=== PATIENT | female | born 1980 | race Caucasian/White ===

== ENCOUNTER 2016-04-20 19:29 | Emergency (ER) | payer SELFPAY ==
[~2016-04-20] VITALS: Ht 162.6 cm; Wt 84.8 kg
[~2016-04-20 19:29] MED LIST: AMOX1TAB61 PO; IBUP800T2 PO; ONDA4TAB7 PO
[2016-04-20 20:43] VITALS: BP 113/70
[2016-04-20] MEDS ORDERED: DIPHTH,PERTUSS(ACELL),TET TOX 0.5 ML DISP.SYRIN. VAX IM ONE (21:15)
[2016-04-20] MEDS ORDERED: LIDOCAINE 1% / SOD BICARB 8.4% 20 ML VIAL. IJ ONE (21:15)
--- NOTE | 2016-04-20 22:51 | PHYS DOC ---
Past Medical History Past Medical History: Anxiety Additional Past Medical Histor: ADHD Past Surgical History: Hysterectomy Alcohol Use: None Drug Use: None Adult General Chief Complaint Chief Complaint: LACERATION/AVULSION HPI HPI Patient is a 35 year old female who presents with left thumb laceration at 1430. Patient states she is using a knife to remove a zip tie from a package when the knife slipped and cut her thumb. She cleaned the wound with iodine and irrigated it in the sink. She covered the wound and went to school to complete a final examination. The wound reopened and she applied tissue glue to the wound to control bleeding. Her tetanus immunization is not up-to-date. Her PCP is Dr. Asya Maynard. Review of Systems Review of Systems Constitutional: Denies fever or chills. [] Musculoskeletal: Denies back pain or joint pain. Reports left thumb pain. Integument: Denies rash or skin lesions. Reports left thumb laceration. Neurologic: Denies focal weakness or sensory changes. [] Current Medications Current Medications Current Medications Medications (Trade) Dose Ordered Sig/Susana Start Time Stop Time Status Last Admin Dose Admin Diphtheria/ Tetanus/Acell Pertussis (Boostrix) 0.5 ml ONCE ONCE 04/20/16 21:15 04/20/16 21:16 DC 04/20/16 21:21 0.5 ML Lidocaine/Sodium Bicarbonate (Buffered Lidocaine 1%) 20 ml 1X ONCE 04/20/16 21:15 04/20/16 21:16 DC 04/20/16 21:20 20 ML Allergies Allergies Allergies Coded Allergies Type Severity Reaction Last Updated Verified amoxicillin Adverse Reaction Unknown Nausea and Vomiting 04/20/16 Yes clavulanic acid Adverse Reaction Unknown Nausea and Vomiting 04/20/16 Yes Physical Exam Physical Exam Constitutional: Well developed, well nourished, no acute distress, non-toxic appearance. [] HENT: Normocephalic, atraumatic, oropharynx moist. [] Eyes: PERRLA, EOMI, conjunctiva normal, no discharge. [] Skin: Warm, dry, no erythema, no rash. There is a 1 cm laceration on the palmar surface of the left thumb proximal phalanx. Extremities: Left thumb tenderness, decreased opposition of the thumb due to pain, no edema. 2+ radial and ulnar pulses. Less than 2 second capillary refill in the fingers distally. Light touch sensation intact in the finger distally. Neurologic: Alert and oriented X 3, normal motor function, normal sensory function, no focal deficits noted. [] Psychologic: Affect normal, judgement normal, mood normal. [] Current Patient Data Vital Signs Vital Signs Date Time Temp Pulse Resp B/P Pulse Ox O2 Delivery O2 Flow Rate FiO2 04/20/16 20:43 98.3 87 16 99 Room Air 98.3 EKG EKG [] Radiology/Procedures Radiology/Procedures Three-view x-ray of the left hand reviewed and interpreted by myself with Dr. Coulter. There are no acute fractures or dislocations. Course & Med Decision Making Course & Med Decision Making Pertinent Labs and Imaging studies reviewed. (See chart for details) Patient presents with a 1 cm laceration to the left thumb palmar surface, proximal phalanx. The wound was anesthetized with 1% buffered lidocaine. The wound was explored for foreign bodies and none were identified. There was no tendon laceration. The wound was cleaned using chlorhexidine scrub and copiously irrigated using normal saline. Previously applied tissue adhesive glue was removed. Wound edges were well approximated using 2 simple interrupted sutures using 5-0 nylon. The patient tolerated the procedure well and bleeding was controlled. A sterile dressing was applied. Dragon Disclaimer Dragon Disclaimer This electronic medical record was generated, in whole or in part, using a voice recognition dictation system. Departure Departure Impression: Primary Impression: Finger laceration Disposition: 01 HOME, SELF-CARE Condition: IMPROVED Referrals: NO PCP (PCP) Patient Instructions: Sutured Wound Care, [id number] Additional Instructions: Your wound was closed with nonabsorbable sutures. The sutures may get wet, however do not submerge the wound in water. Please clean the wound with soap and water only. Do not use alcohol or peroxide , as this will prolong the healing stage. Please cover the wound with antibiotic ointment and a bandage. Please follow-up with your doctor for suture removal in 7-10 days. Follow-up with your doctor or return to the emergency department if you have redness, swelling, or yellow/green drainage from the wound, as these are signs of infection. Return to the emergency department if you have any new or concerning symptoms. Problem Qualifiers Primary Impression: Finger laceration Encounter type: initial encounter Qualified Code: S61.219A - Laceration without foreign body of unspecified finger without damage to nail, initial encounter JAQUAN GUZMAN Apr 20, 2016 22:51
--- NOTE | 2016-04-21 08:15 | RAD ---
Exam performed:Left hand 3 views. Indication: Laceration to the base of thumb. Date of Service:04/20/16 Comparison: None available Discussion: PA, oblique lateral radiographs of the hand reveal the osseous structures to be intact and well aligned. The joint spaces are well-preserved. The articular margins are smooth. No soft tissue swelling or foreign bodies detected. Impression: Radiographically normal left hand.
== END 2016-04-20 22:58 | disposition home or self-care (01) ==
LOC: ER 19:29
DX: S61.012A Laceration without foreign body of left thumb without damage to nail, initial encounter (principal); F90.9 Attention-deficit hyperactivity disorder, unspecified type; Z88.1 Allergy status to other antibiotic agents; W26.0XXA Contact with knife, initial encounter; Y93.89 Activity, other specified; Y99.8 Other external cause status; Y92.89 Other specified places as the place of occurrence of the external cause
CPT/HCPCS: 12001; 73130; 90471; 90715; 99284-25

== ENCOUNTER → 2016-12-22 | Outpatient (CLI) | payer OTHER ==
[~2016-12-22] MED LIST changes: +IBUP800T19 PO; -IBUP800T2 PO
--- NOTE | 2016-12-22 11:53 | RAD ---
AP and lateral views of the lumbar spine 12/22/2016 Indication: Low back pain. Developing arthritis. Comparison study: None available Discussion: No evidence of acute fracture or alignment abnormality is identified. Vertebral body heights and disc spaces are maintained. No evidence of spondylolysis or spondylolisthesis is seen. Possible mild facet arthrosis can be seen at L5-S1. No acute soft tissue changes are identified. Impression: Possible mild degenerative change at L5-S1. No acute abnormalities are identified
== END | disposition home or self-care (01) ==
LOC: RAD 11:11
PROVIDERS: ATTEND Neuromusculoskeletal Medicine, Sports Medicine
DX: M51.37 Other intervertebral disc degeneration, lumbosacral region (principal)
CPT/HCPCS: 72100

== ENCOUNTER 2018-05-07 09:16 | Emergency (ER) | payer SELFPAY ==
[~2018-05-07] VITALS: Ht 165.1 cm; Wt 81.6 kg
[2018-05-07] MEDS ORDERED: IV NORMAL SALINE 1000ML BAG 1,000 ML IV ONE (10:00)
[2018-05-07] MEDS ORDERED: KETOROLAC 15 MG/ML VIAL. IV ONE (10:00)
[2018-05-07 10:21] LABS: BASO % 0 % (0-3); BILIRUBIN,URINE NEGATIVE (NEG); CLARITY,URINE CLEAR; COLOR,URINE YELLOW; EOS # 0.2 x10^3/uL (0.0-0.7); EOS % 2 % (0-3); HEMATOCRIT 39.8 % (36.0-47.0); HEMOGLOBIN 13.7 g/dL (12.0-15.5); LYMPH # 2.2 x10^3/uL (1.0-4.8); LYMPH % 30 % (24-48); MEAN CORPUSCULAR HEMOGLOBIN 33 pg (25-35); MEAN CORPUSCULAR HGB CONC 34 g/dL (31-37); MEAN CORPUSCULAR VOLUME 95 fL (79-100); MONO # 0.6 x10^3/uL (0.0-1.1); MONO % 8 % (0-9); NEUT # 4.3 x10^3uL (1.8-7.7); NEUT % 59 % (31-73); NITRITE,URINE NEGATIVE (NEG); PH,URINE 6.5; PLATELET COUNT 328 x10^3/uL (140-400); PROTEIN,URINE NEGATIVE (NEG-TRACE); RED CELL DISTRIBUTION WIDTH 12.9 % (11.5-14.5); UROBILINOGEN,URINE 0.2 mg/dL (0.2 mg/dL); WHITE BLOOD COUNT 7.2 x10^3/uL (4.0-11.0)
--- NOTE | 2018-05-07 10:23 | PHYS DOC ---
Past Medical History Past Medical History: Anxiety, Kidney Stone, Other Additional Past Medical Histor: ADHD,SPINAL STENOSIS,CHRONIC PAIN Past Surgical History: Hysterectomy, Other Additional Past Surgical Histo: CYSTOSCOPY W/STENTS,LITHOTRIPSY,SONIC BLAST Alcohol Use: None Drug Use: None Adult General Chief Complaint Chief Complaint: ABDOMINAL PAIN HPI HPI Patient is a 37 year old female, with a history of kidney stones and , who presents with right flank pain and b/l lower abdominal pain. Pt reports having this pain for the past few days, describing it as a pressure sensation that can become sharp w/ movement and rated a 8/10. She reports feeling nauseous the past few days, and vomited yesterday. Her pain is better when she lies flat and doesn't move. She admits to frequency, urgency, headache, feeling feverish, and chills. She denies dysuria, hematuria, diarrhea, constipation, chest pain, SOB, or cough. She also relays a distant history (~ 2007) of kidney stones requiring hospitalization and leading to a cystoscopy w/ stents, lithotripsy, sonic blast. In 2002 she had a hysterectomy and reports that they may have cut her left ureter partially and this was the cause of her kidney problems in 2007. Review of Systems Review of Systems Constitutional: Admits fever or chills Eyes: Denies change in visual acuity, redness, or eye pain HENT: Denies nasal congestion or sore throat Respiratory: Denies cough or shortness of breath Cardiovascular: No additional information not addressed in HPI GI: Admits lower abdominal pain b/l, nausea, vomiting. Denies bloody stools or diarrhea : Denies dysuria or hematuria. Admits to frequency and urgency Musculoskeletal: Admits right back pain. Integument: Denies rash or skin lesions Neurologic: Admits CARMONA, Denies focal weakness or sensory changes All other systems were reviewed and found to be within normal limits, except as documented in this note. Current Medications Current Medications Current Medications Medications (Trade) Dose Ordered Sig/Susana Start Time Stop Time Status Last Admin Dose Admin Ketorolac Tromethamine (Toradol 15mg Vial) 15 mg 1X ONCE 05/07/18 10:00 05/07/18 10:14 DC 05/07/18 10:19 15 MG Sodium Chloride 1,000 ml @ 1,000 mls/hr 1X ONCE 05/07/18 10:00 05/07/18 10:59 DC 05/07/18 10:18 1,000 MLS/HR Allergies Allergies Allergies Coded Allergies Type Severity Reaction Last Updated Verified amoxicillin Adverse Reaction Unknown Nausea and Vomiting 04/20/16 Yes clavulanic acid Adverse Reaction Unknown Nausea and Vomiting 04/20/16 Yes Physical Exam Physical Exam Constitutional: Well developed, well nourished, mild distress, non-toxic appearance. HENT: Normocephalic, atraumatic, bilateral external ears normal, oropharynx moist, no oral exudates, nose normal. Eyes: PERRLA, EOMI, conjunctiva normal, no discharge. Neck: Normal range of motion, no tenderness, supple, no stridor Cardiovascular:Heart rate regular rhythm, no murmur Lungs & Thorax: Bilateral breath sounds clear to auscultation Abdomen: Bowel sounds normal, soft, no masses, no pulsatile masses. slight tenderness to deep palpation in left and right lower quadrants. Skin: Warm, diaphoretic dry, no erythema, no rash. Back:CVA tenderness to light tapping on the right- did not need to preform Adalberto 's punch after this positive Extremities: No tenderness, no cyanosis, no clubbing. Mild Swelling of the fingers and hands Neurologic: Alert and oriented X 3, normal motor function, normal sensory function, no focal deficits noted. Current Patient Data Vital Signs Vital Signs Date Time Temp Pulse Resp B/P (MAP) Pulse Ox O2 Delivery O2 Flow Rate FiO2 05/07/18 09:18 97.6 80 20 136/60 (85) 100 Room Air 97.6 Lab Values Laboratory Tests Test 05/07/18 09:22 White Blood Count 7.2 x10^3/uL (4.0-11.0) Red Blood Count 4.20 x10^6/uL (3.50-5.40) Hemoglobin 13.7 g/dL (12.0-15.5) Hematocrit 39.8 % (36.0-47.0) Mean Corpuscular Volume 95 fL (79-100) Mean Corpuscular Hemoglobin 33 pg (25-35) Mean Corpuscular Hemoglobin Concent 34 g/dL (31-37) Red Cell Distribution Width 12.9 % (11.5-14.5) Platelet Count 328 x10^3/uL (140-400) Neutrophils (%) (Auto) 59 % (31-73) Lymphocytes (%) (Auto) 30 % (24-48) Monocytes (%) (Auto) 8 % (0-9) Eosinophils (%) (Auto) 2 % (0-3) Basophils (%) (Auto) 0 % (0-3) Neutrophils # (Auto) 4.3 x10^3uL (1.8-7.7) Lymphocytes # (Auto) 2.2 x10^3/uL (1.0-4.8) Monocytes # (Auto) 0.6 x10^3/uL (0.0-1.1) Eosinophils # (Auto) 0.2 x10^3/uL (0.0-0.7) Basophils # (Auto) 0.0 x10^3/uL (0.0-0.2) Urine Collection Type Unknown Urine Color Yellow Urine Clarity Clear Urine pH 6.5 Urine Specific Jonancy 1.015 Urine Protein Negative mg/dL (NEG-TRACE) Urine Glucose (UA) Negative mg/dL (NEG) Urine Ketones (Stick) Negative mg/dL (NEG) Urine Blood Negative (NEG) Urine Nitrite Negative (NEG) Urine Bilirubin Negative (NEG) Urine Urobilinogen Dipstick 0.2 mg/dL (0.2 mg/dL) Urine Leukocyte Esterase Negative (NEG) Urine RBC Occ /HPF (0-2) Urine WBC Occ /HPF (0-4) Urine Squamous Epithelial Cells Mod /LPF Urine Bacteria Moderate /HPF (0-FEW) Urine Mucus Mod /LPF Sodium Level 140 mmol/L (136-145) Potassium Level 4.0 mmol/L (3.5-5.1) Chloride Level 101 mmol/L (98-107) Carbon Dioxide Level 26 mmol/L (21-32) Anion Gap 13 (6-14) Blood Urea Nitrogen 12 mg/dL (7-20) Creatinine 0.7 mg/dL (0.6-1.0) Estimated GFR (Cockcroft-Gault) 93.6 BUN/Creatinine Ratio 17 (6-20) Glucose Level 117 mg/dL (70-99) H Calcium Level 9.0 mg/dL (8.5-10.1) Total Bilirubin 0.2 mg/dL (0.2-1.0) Aspartate Amino Transferase (AST) 12 U/L (15-37) L Alanine Aminotransferase (ALT) 23 U/L (14-59) Alkaline Phosphatase 126 U/L (46-116) H Total Protein 6.7 g/dL (6.4-8.2) Albumin 3.6 g/dL (3.4-5.0) Albumin/Globulin Ratio 1.2 (1.0-1.7) Laboratory Tests 05/07/18 09:22 Laboratory Tests 05/07/18 09:22 EKG EKG [] Radiology/Procedures Radiology/Procedures [] Impressions: IMPRESSION: 1. No renal or ureteral calculus noted. 2. Normal appendix. 3. Phleboliths in the pelvis.. 4. No bowel obstruction or other acute finding in the abdomen. Electronically signed by: Bright Canas MD (05/07/2018 10:50 AM) [facility] DICTATED and SIGNED BY: BRIGHT CANAS MD DATE: 05/07/18 1050 Course & Med Decision Making Course & Med Decision Making Patient is a 37 year old female, with a history of kidney stones.workup neg in er. reassured. rest hydrate gradual return to activity Ddx Nephrolithiasis Urolithiasis UTI Pyelonephritis Appendicitis Workup UA CT abdomen pelvis non contrast Pain medication CBC CMP Dragon Disclaimer Dragon Disclaimer This electronic medical record was generated, in whole or in part, using a voice recognition dictation system. Departure Departure Impression: Primary Impression: Back pain Disposition: 01 HOME, SELF-CARE Condition: STABLE Referrals: NON,STAFF (PCP) ABRAHAM CERRATO MD May 07, 2018 10:23
[2018-05-07 10:37] LABS: CREATININE 0.7 mg/dL (0.6-1.0); GFR 93.6
[2018-05-07 10:43] LABS: ALBUMIN 3.6 g/dL (3.4-5.0); ALBUMIN/GLOBULIN RATIO 1.2 (1.0-1.7); SQUAMOUS EPITHELIAL CELL,UR MOD /LPF; TOTAL BILIRUBIN 0.2 mg/dL (0.2-1.0); TOTAL PROTEIN 6.7 g/dL (6.4-8.2)
[2018-05-07 10:44] LABS: BACTERIA,URINE MODERATE /HPF (0-FEW); RBC,URINE OCC /HPF (0-2); WBC,URINE OCC /HPF (0-4)
--- NOTE | 2018-05-07 10:53 | RAD ---
CT abdomen and pelvis without contrast. HISTORY: Right flank pain, history of renal colic CT scan of the abdomen and pelvis was done without contrast. There is mild atelectasis in the lung bases without other infiltrates. A liver lesion is not identified. There is no calcified gallstone. Spleen and adrenal glands are normal. Pancreas is unremarkable. There is no mass or hydronephrosis in the kidneys. There are phleboliths in the pelvis. A definite ureteral calculus is not identified. Bladder is normal in appearance. Patient's had a hysterectomy. There is no bowel obstruction or ascites. Appendix is normal. There is not evidence of a diverticulitis. There is no bowel obstruction. IMPRESSION: 1. No renal or ureteral calculus noted. 2. Normal appendix. 3. Phleboliths in the pelvis.. 4. No bowel obstruction or other acute finding in the abdomen. Electronically signed by: Bright Noyola MD (05/07/2018 10:50 AM) [facility]
[2018-05-07 11:39] VITALS: BP 113/64
== END 2018-05-07 11:45 | disposition home or self-care (01) ==
LOC: ER 09:16
DX: M54.9 Dorsalgia, unspecified (principal); R10.31 Right lower quadrant pain; R10.32 Left lower quadrant pain; R11.2 Nausea with vomiting, unspecified; R51 Headache; R39.15 Urgency of urination; R50.9 Fever, unspecified; R61 Generalized hyperhidrosis; R35.0 Frequency of micturition; G89.29 Other chronic pain; Z90.710 Acquired absence of both cervix and uterus; Z87.442 Personal history of urinary calculi; Z88.1 Allergy status to other antibiotic agents
CPT/HCPCS: 36415; 74176; 80053; 81001; 85025; 87086; 96361; 96374; 99284; J1885; J7030